=== PATIENT | male | born 1985 | race Caucasian/White ===

== ENCOUNTER 2017-04-16 16:28 | Emergency (ER) | payer OTHER ==
--- NOTE | 2017-04-16 18:08 | ED ---
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 Denies any significant pain however lower and upper back/neck feels sore. Has not taken any medication. Denies weakness, numbness/tingling, saddle anesthesia and radiation of pain. States the pain is mainly on his lower left side. Denies any other complaints. No PMHx. No bruising, swelling or other signs of trauma. Patient had to come due to injury occurring at work. Denies head injury, no headache, vision changes , nausea, vomiting or LOC. - History of Current Complaint Chief Complaint: EDGeneral Stated Complaint: HEAD & BACK INJURIES Time Seen by Provider: 04/16/17 17:00 Hx Obtained From: Patient Onset/Duration: Sudden Onset Onset/Duration: Started Hours Ago, Traumatic, Still Present Timing: Constant Back Pain Location: Is Discrete @ - left low back. upper back/neck Severity Currently: Mild Pain Intensity: 0 Pain Scale Used: 0-10 Numeric Character: Dull, Aching Aggravating Symptom(s): Movement Alleviating Symptom(s): Rest Associated Signs And Symptoms: Positive: Negative - Allergies/Home Medications Allergies/Adverse Reactions: Allergies Allergy/AdvReac Type Severity Reaction Status Date / Time No Known Allergies Allergy Verified 04/16/17 16:40 PMH/Surg Hx/FS Hx/Imm Hx Endocrine/Hematology History: Denies: Hx Anticoagulant Therapy, Hx Diabetes Cardiovascular History: Denies: Hx Hypertension Respiratory History: Denies: Hx Asthma - Surgical History Surgery Procedure, Year, and Place: n/a - Immunization History Immunizations Up to Date: Yes Infectious Disease History: No Infectious Disease History: Denies: Traveled Outside the [place] in Last 30 Days - Family History Known Family History: Positive: None - Social History Alcohol Use: None Substance Use Type: Reports: None Smoking Status (MU): Light Every Day Tobacco Smoker Review of Systems Constitutional: Negative Cardiovascular: Negative Respiratory: Negative Gastrointestinal: Negative Positive: Arthralgia, Myalgia Skin: Negative Neurological: Negative All Other Systems Reviewed And Are Negative: Yes Physical Exam Triage Information Reviewed: Yes Vital Signs On Initial Exam: Initial Vitals Temp Pulse Resp BP Pulse Ox 97.9 F 63 16 132/82 97 04/16/17 16:37 04/16/17 16:37 04/16/17 16:37 04/16/17 16:37 04/16/17 16:37 Vital Signs Reviewed: Yes Appearance: Positive: Well-Appearing, No Pain Distress - laying and moving around without issues or pain, Well-Nourished Skin: Positive: Warm, Skin Color Reflects Adequate Perfusion, Dry. Negative: Cold, Numb, Cyanosis @, Pale, Erythema @ Head/Face: Positive: Normal Head/Face Inspection Eyes: Positive: Normal, EOMI, GERARDO, Conjunctiva Clear Neck: Positive: Supple, Nontender, No Lymphadenopathy Respiratory/Lung Sounds: Positive: Clear to Auscultation, Breath Sounds Present. Negative: Rales, Rhonchi, Wheezes Cardiovascular: Positive: Normal, RRR, Pulses are Symmetrical in both Upper and Lower Extremities. Negative: Murmur, Rub Abdomen Description: Positive: Nontender, Soft Bowel Sounds: Positive: Present Musculoskeletal: Positive: Normal, Strength/ROM Intact, Pain @ - on palpation of lower left paraspinal muscles L2-L4 area, minimal and C6-T2 left side, minimal. Negative: Limited @, Interruption @, Edema Left, Edema Right Neurological: Positive: Normal, Sensory/Motor Intact, Alert, Oriented to Person Place, Time, CN Intact II-III, Reflexes Intact, NV Bundle Intact Distally, Normal Gait Diagnostics - Vital Signs Vital Signs Temp Pulse Resp BP Pulse Ox 04/16/17 16:37 97.9 F 63 16 132/82 97 - Laboratory Lab Statement: Any lab studies that have been ordered have been reviewed, and results considered in the medical decision making process. Back Pain Course/Dx - Course Course Of Treatment: due to physical exam findings and RUDY no imaging appeared necessary. Patient states not in much pain, just sore. required to come due to injury occuring at work. recommended ibuprofen, heat and rest. follow up pcp. may be more sore tomorrow. aware of worsening signs and symptoms. no other concerns at this time. - Diagnoses Differential Diagnosis/HQI/PQRI: Positive: Strain, Sprain Provider Diagnoses: Lumbosacral strain, Contusion Discharge - Discharge Plan Condition: Good Disposition: HOME Patient Education Materials: Low Back Strain (ED), Contusion in Adults (ED) Referrals: No Primary Care Phys,NOPCP [Primary Care Provider] - Additional Instructions: Recommend ibuprofen as needed, with food, to help with pain and inflammation. Rest, apply ice/heat. Refrain from lifting or strenuous physical activity until symptoms improve. You may be more sore/stiff tomorrow. Any new or worsening signs/symptoms please seek medical attention. Follow up with PCP to ensure improvement.
[2017-04-16 18:29] VITALS: BP 123/85
== END 2017-04-16 18:28 | disposition home or self-care (01) ==
LOC: ED 16:28
DX: S39.012A Strain of muscle, fascia and tendon of lower back, initial encounter (principal); S30.0XXA Contusion of lower back and pelvis, initial encounter; M54.5 Low back pain; F17.210 Nicotine dependence, cigarettes, uncomplicated; W19.XXXA Unspecified fall, initial encounter; Y92.9 Unspecified place or not applicable
CPT/HCPCS: 99282

== ENCOUNTER 2017-09-12 08:26 | Day surgery (SDC) | payer BC ==
[~2017-09-12 08:26] MED LIST: Buffered Lidocaine 0.9% SYRIN* 5 ML/SYR SYRINGE INTRADERM ONE
[2017-09-12] MEDS ORDERED: ceFAZolin 2 GM PREMIX (*) 2 GM/50 ML BAG IVPB ONE (08:46)
[2017-09-12] MEDS ORDERED: Midazolam* 1 MG/ML 2 ML VIAL (2 MG) ONE (09:38)
[2017-09-12] MEDS ORDERED: fentaNYL* 50 MCG/ML 2 ML VIAL (100 MCG VIAL) ONE (09:38)
[2017-09-12] MEDS ORDERED: Lidocain 1% EPI 1:100,000 * 30 ML MDV ONE (10:18)
[2017-09-12] MEDS ORDERED: Bupivacaine 0.5%* 50 ML VIAL ONE (10:18)
[2017-09-12] MEDS ORDERED: Metoclopramide IV* 5 MG/ML 2 ML VIAL ONE (10:30)
[2017-09-12] MEDS ORDERED: Dexamethasone IV* 4 MG/ML 1 ML (4 MG) ONE (10:30)
[2017-09-12] MEDS ORDERED: Lidocaine 2% PF * 5 ML VIAL ONE (10:30)
[2017-09-12] MEDS ORDERED: Propofol* 10 MG/ML 20 ML BTL IV PUSH ONE (10:30)
[2017-09-12] MEDS ORDERED: Ketorolac INJ* 30 MG/ML 1 ML VIAL ONE (10:31)
[2017-09-12] MEDS ORDERED: Naloxone* 0.4 MG/ML 1 ML VIAL IV PRN (10:43)
[2017-09-12] MEDS ORDERED: Acetaminophen TAB* 325 MG PO PRN (10:43)
[2017-09-12] MEDS ORDERED: oxyCODONE/Acetamin 5/325 MG* TAB PO PRN (10:43)
[2017-09-12] MEDS ORDERED: HYDROmorphone INJ* 0.5 MG/0.5 ML SYRINGE IV PRN (10:43)
[2017-09-12 12:04] VITALS: BP 115/59
--- NOTE | 2017-09-12 21:46 | OP ---
DATE OF OPERATION: 09/12/17 - [facility] DATE OF : 83 SURGEON: Lorenzo Ngo MD VIDEO GAME CREATOR: None available. ANESTHESIOLOGIST: Dr. Gomez. ANESTHESIA: General. PRE-OP DIAGNOSIS: Right knee medial meniscus tear with some patellofemoral pain. POST-OP DIAGNOSIS: Right knee medial and lateral meniscal tearing with synovitis about the patellofemoral joint. OPERATIVE PROCEDURE: Right knee arthroscopy with partial medial and partial lateral meniscectomy as well as anterior synovectomy. INDICATIONS: Mr. Cerna is a 31-year-old male who has had right knee catching and locking medially based pain for several years. It has been getting worse with time. He has pain under the knee cap. It is worse with running and walking. We have tried physical therapy, antiinflammatories, and have an MRI that confirms the diagnosis. Risks and benefits were discussed at length included, but not limited to, bleeding; infection; damage to nerves, vessels, and surrounding structures; wound nonhealing; persistent pain; need for further surgery; scarring; stiffness; incomplete relief of symptoms; risk of anesthesia. COMPLICATIONS: None. ESTIMATED BLOOD LOSS: Minimal. TOURNIQUET TIME: Zero minutes. SPECIMEN: None. DESCRIPTION OF PROCEDURE: The patient was greeted in the preoperative area by the attending surgeon. Correct extremity was marked and the consent was confirmed. The patient was then brought back to the operating suite where he was placed in supine position on the operating table. He then underwent general anesthesia with LMA intubation, after which he was properly positioned in the bed. The nonsterile tourniquet was placed high in the right leg. The lateral post was positioned. Right leg was then prepped and draped in usual sterile fashion beginning with chlorhexidine soap, scrub, and alcohol wipe and a final prep with ChloraPrep. After appropriate surgical pause indicating site, side, procedure, and administration of antibiotics, the knee was intraarticularly injected with 1% lidocaine with epi. The anterolateral portal was then made sharply with 11 blade. The scope was introduced into the joint. The joint was examined. There was abundant synovitis and erythema that was present. The scope was brought to the patellofemoral joint. There were grade 0 to 1 changes. Lateral gutter and medial gutter were intact. There was abundant synovitis about the patella, which made mobilization slightly difficult. ACL and PCL were intact. The scope was brought to the medial compartment, which had grade 0 to 1 changes in the medial femoral condyle, medial plateau, but there was unstable parrot beak tear that was present. This appeared to have been split and there was a piece that was incarcerated under the meniscus as well. The biters and joseph were then used to debride this all the way back to the root. Probe was used to make sure there was no other unstable flaps present. The lateral compartment was then visualized with the knee in figure- of-four. There was fraying of the body of the meniscus, but the root of the meniscus had some partial tearing. This was debrided back using a shaver. The lateral femoral condyle and lateral plateau had grade 0 to 1 changes. The knee was then placed in extension. There was abundant synovitis present. This was debrided back using the electrocautery device about the anterior aspect as well as medial and laterally. Once this was completed, final images were obtained. The wounds were copiously irrigated with sterile saline. The portals were closed with 3-0 nylon. Sterile dressings were applied. The knee was intraarticularly injected with 0.25% Marcaine plain. Cryo/Cuff was placed. He was awoken from anesthesia and transferred to PACU in stable condition. POSTOPERATIVE PLAN: He will be weightbearing as tolerated, crutches for 3 to 5 days. Discharged on pain medications. DVT prophylaxis was considered but deferred as we discussed with his father that he did not have a DVT but a heart attack, therefore it was deferred. I will see him back in 10 to 14 days. [id number]/[facility] #: [id number] [place]
== END 2017-09-12 12:16 | disposition home or self-care (01) ==
LOC: OREAST 08:26
PROVIDERS: ATTEND Orthopaedic Surgery
DX: S83.241A Other tear of medial meniscus, current injury, right knee, initial encounter (principal); S83.281A Other tear of lateral meniscus, current injury, right knee, initial encounter; X58.XXXA Exposure to other specified factors, initial encounter; Y92.9 Unspecified place or not applicable; Z72.0 Tobacco use; K21.9 Gastro-esophageal reflux disease without esophagitis
CPT/HCPCS: 88304; J0690; J1100; J1885; J2250; J2704; J2765; J3010